=== PATIENT | female | born 1980 | race Caucasian/White ===

== ENCOUNTER 2022-12-11 12:49 | Outpatient (CLI) | payer OTHER ==
[~2022-12-11 12:49] MED LIST: PRENATAL TABLET1 TAB PO
== END 2022-12-11 13:37 | disposition home or self-care (01) ==
LOC: NST 12:49
PROVIDERS: ATTEND Obstetrics & Gynecology Maternal & Fetal Medicine
DX: Z34.83 Encounter for supervision of other normal pregnancy, third trimester (principal)

== ENCOUNTER 2023-01-21 17:13 | Outpatient (CLI) | payer OTHER ==
[2023-01-21] MEDS ORDERED: ECOTRIN81 MG PO (23:10)
== END 2023-01-22 08:11 | disposition still patient (30) ==
LOC: OBS/DEL 17:13
PROVIDERS: ATTEND Obstetrics & Gynecology
DX: O26.893 Other specified pregnancy related conditions, third trimester (principal); Z3A.39 39 weeks gestation of pregnancy

== ENCOUNTER 2023-01-22 03:22 | Inpatient (IN) | payer OTHER ==
[~2023-01-22] VITALS: Ht 167.6 cm; Wt 3.2 kg
[~2023-01-22 03:22] MED LIST changes: +ECOTRIN81 MG PO
== END 2023-01-24 16:14 | disposition home or self-care (01) | DRG 785 ==
LOC: LDR 03:22 → OB/GYN 03:22 → LDR 08:14 → O/R 09:34 → OB/GYN 11:11
PROVIDERS: ADMIT Obstetrics & Gynecology; ATTEND Obstetrics & Gynecology
PROC: 4A1HXCZ Monitoring of Products of Conception, Cardiac Rate, External Approach (ICD-10-PCS; 2023-01-22)
PROC: 0UB70ZZ Excision of Bilateral Fallopian Tubes, Open Approach (ICD-10-PCS; 2023-01-22)
PROC: 10D00Z1 Extraction of Products of Conception, Low, Open Approach (ICD-10-PCS; principal; 2023-01-22 06:45)
DX: O62.1 Secondary uterine inertia (principal); Z3A.39 39 weeks gestation of pregnancy; Z37.0 Single live birth; Z20.822 Contact with and (suspected) exposure to COVID-19; Z30.2 Encounter for sterilization